=== PATIENT | female | born 1945 | race Caucasian/White ===

== ENCOUNTER 2016-09-03 19:04 | Emergency (ER) | payer MEDICARE ==
[~2016-09-03 19:04] MED LIST: ALBUTEROL2.5 MG/3 M IH; ATROVENT I0.2 MG/1 M IH; GUAIFENESIN AND5 ML PO; LEVOTHYROXINE; PAROXETINE20 MG PO; PEPCID40 M1 PO; PREDNISONE20 M1 PO; PROAIR RESPICL90 MCG IH; SYMBICORT1 AE3 IH; THEODUR 300MG PO; VIBRAMYCIN100 MG PO
== END 2016-09-03 20:22 | disposition home or self-care (01) ==
LOC: ED 19:04
DX: M77.9 Enthesopathy, unspecified (principal); M79.672 Pain in left foot
CPT/HCPCS: J1885

== ENCOUNTER → 2016-12-05 | Outpatient (CLI) | payer MEDICARE ==
[2016-09-03 20:22] VITALS: BP 145/87
== END ==
LOC: RAD 11-23 08:08
DX: M25.511 Pain in right shoulder (principal); M75.81 Other shoulder lesions, right shoulder

== ENCOUNTER → 2019-03-05 | Outpatient (CLI) | payer MEDICARE ==
[2016-09-03 20:22] VITALS: BP 145/87
== END ==
LOC: MAMMO 10:45
DX: Z12.31 Encounter for screening mammogram for malignant neoplasm of breast (principal)

== ENCOUNTER → 2019-10-09 | Outpatient (CLI) | payer MEDICARE ==
[2016-09-03 20:22] VITALS: BP 145/87
== END ==
LOC: RAD 10-03 13:00
DX: G31.9 Degenerative disease of nervous system, unspecified (principal)
CPT/HCPCS: A9585

== ENCOUNTER → 2019-10-17 | Outpatient (CLI) | payer MEDICARE ==
[2016-09-03 20:22] VITALS: BP 145/87
== END ==
LOC: RAD 12:51
DX: I65.29 Occlusion and stenosis of unspecified carotid artery (principal); I67.82 Cerebral ischemia

== ENCOUNTER 2019-10-23 18:25 | Emergency (ER) | payer MEDICARE ==
[~2019-10-23] VITALS: Ht 154.9 cm; Wt 64.1 kg
[~2019-10-23 18:25] MED LIST changes: -LEVOTHYROXINE; +SYNTHROID0.05 MG PO
[2019-10-23] MEDS ORDERED: THEOPHYLLINE400 M1 PO (19:24)
[2019-10-23] MEDS ORDERED: ZOLOFT 50MG50 MG PO (19:25)
[2019-10-23 20:31] LABS: EOS # 0.1 (0.04-0.40); HEMATOCRIT 43.1 % (37.0-47.0); HEMOGLOBIN 14.1 g/dL (12.5-16.0); LYMPH# 1.3 (1.50-4.00); MEAN CELL VOLUME 95 fl (78-100); MEAN CORPUSCULAR HEMOGLOBIN 31 pg (27-31); MEAN CORPUSCULAR HGB CONC 33 g/dL (33-37); MEAN PLATELET VOLUME 8.9 fl (7.4-10.4); MONO # 0.6 (0.20-0.80); NEU # 5.1 (1.40-6.50); PLATELET COUNT 194 K/mm3 (130-400); RED BLOOD COUNT 4.56 M/mm3 (4.10-5.30); RED CELL DISTRIBUTION WIDTH 13.8 % (11.5-14.5); WHITE BLOOD COUNT 7.2 K/mm3 (4.8-10.8)
[2019-10-23 20:35] LABS: PH-URINE 7.5 (5.0 - 8.0); URINE APPEARANCE CLEAR; URINE BILIRUBIN NEGATIVE (NEGATIVE); URINE BLOOD TRACE (NEGATIVE); URINE COLOR YELLOW; URINE GLUCOSE NEGATIVE (NEGATIVE); URINE KETONE NEGATIVE (NEGATIVE); URINE LEUKOCYTE ESTERASE NEGATIVE (NEGATIVE); URINE NITRATE NEGATIVE (NEGATIVE); URINE PROTEIN(semi-quant) TRACE mg/dL (NEGATIVE); URINE UROBILINOGEN NORMAL (NORMAL)
[2019-10-23 20:38] LABS: ALBUMIN 4.2 g/dL (3.4-4.8); POTASSIUM 3.9 mmol/L (3.5-5.1)
[2019-10-23 20:40] LABS: TOTAL PROTEIN 6.8 g/dL (6.2-8.1)
[2019-10-23 20:42] LABS: TOTAL BILIRUBIN 0.5 mg/dL (0.2-1.2)
[2019-10-23 23:47] VITALS: BP 148/86
== END 2019-10-23 23:47 | disposition short-term general hospital (02) ==
LOC: ED 18:25
PROVIDERS: Family Medicine
DX: K56.609 Unspecified intestinal obstruction, unspecified as to partial versus complete obstruction (principal); J44.9 Chronic obstructive pulmonary disease, unspecified; E03.9 Hypothyroidism, unspecified; F17.210 Nicotine dependence, cigarettes, uncomplicated
CPT/HCPCS: J3010; Q9967

== ENCOUNTER 2019-11-13 23:04 | Emergency (ER) | payer MEDICARE ==
[~2019-11-13 23:04] MED LIST changes: +THEOPHYLLINE400 M1 PO; +ZOLOFT 50MG50 MG PO
[2019-11-13] MEDS ORDERED: ALBUTEROL2.5 MG/3 M IH (23:57)
[2019-11-13] MEDS ORDERED: ZYRTEC ALLERGY10 MG PO (23:57)
[2019-11-13] MEDS ORDERED: FUROSEMIDE20 MG PO (23:58)
[2019-11-13] MEDS ORDERED: OXYCODONE5 M1 PO (23:58)
[2019-11-14 00:35] LABS: HEMATOCRIT 36.9 % (37.0-47.0); HEMOGLOBIN 12.7 g/dL (12.5-16.0); MEAN CELL VOLUME 89 fl (78-100); MEAN CORPUSCULAR HEMOGLOBIN 31 pg (27-31); MEAN CORPUSCULAR HGB CONC 34 g/dL (33-37); MEAN PLATELET VOLUME 10.1 fl (7.4-10.4); PLATELET COUNT 263 K/mm3 (130-400); RED BLOOD COUNT 4.15 M/mm3 (4.10-5.30); RED CELL DISTRIBUTION WIDTH 13.4 % (11.5-14.5); WHITE BLOOD COUNT 7.9 K/mm3 (4.8-10.8)
[2019-11-14 00:37] LABS: POTASSIUM 4.3 mmol/L (3.5-5.1)
[2019-11-14 00:41] LABS: TOTAL BILIRUBIN 0.4 mg/dL (0.2-1.2)
[2019-11-14 00:47] LABS: PROTHROMBIN TIME 9.2 SECONDS (9.0-12.0)
[2019-11-14 00:53] LABS: LYMPHOCYTE 14 % (20-51); MONOCYTE 11 % (3-10); NEUTROPHILS 74 % (42-75)
[2019-11-14 02:30] VITALS: BP 101/59
== END 2019-11-14 02:30 | disposition home or self-care (01) ==
LOC: ED 23:04
PROVIDERS: Physician Assistant
DX: R10.9 Unspecified abdominal pain (principal); J44.9 Chronic obstructive pulmonary disease, unspecified; E03.9 Hypothyroidism, unspecified; F17.210 Nicotine dependence, cigarettes, uncomplicated
CPT/HCPCS: J2270; Q9967

== ENCOUNTER 2020-06-22 21:14 | Observation (INO) | payer MEDICARE ==
[~2020-06-22] VITALS: Ht 152.4 cm; Wt 65.3 kg
[~2020-06-22 21:14] MED LIST changes: +FUROSEMIDE20 MG PO; +OXYCODONE5 M1 PO; +ZYRTEC ALLERGY10 MG PO
[2020-06-22] MEDS ORDERED: PREDNISONE10 MG PO (21:27)
[2020-06-22 22:13] LABS: EOS # 0.1 (0.04-0.40); EOS % 1.4 % (1.0-5.0); HEMATOCRIT 40.1 % (37.0-47.0); HEMOGLOBIN 12.8 g/dL (12.5-16.0); LYMPH# 1.5 (1.50-4.00); MEAN CELL VOLUME 93 fl (78-100); MEAN CORPUSCULAR HEMOGLOBIN 30 pg (27-31); MEAN CORPUSCULAR HGB CONC 32 g/dL (33-37); MEAN PLATELET VOLUME 9.1 fl (7.4-10.4); MONO # 0.8 (0.20-0.80); NEU # 7.6 (1.40-6.50); PLATELET COUNT 228 K/mm3 (130-400); RED BLOOD COUNT 4.31 M/mm3 (4.10-5.30); RED CELL DISTRIBUTION WIDTH 14.4 % (11.5-14.5)
[2020-06-22 22:26] LABS: ALBUMIN 4.2 g/dL (3.4-4.8); POTASSIUM 4.4 mmol/L (3.5-5.1)
[2020-06-22 22:27] LABS: CALCIUM 9.5 mg/dL (8.3-10.5)
[2020-06-22 22:29] LABS: TOTAL PROTEIN 7.1 g/dL (6.2-8.1)
[2020-06-22 22:30] LABS: TOTAL BILIRUBIN 0.3 mg/dL (0.2-1.2)
[2020-06-22 23:13] VITALS: BP 139/77
[2020-06-22 23:24] VITALS: BP 139/77
[2020-06-23 02:28] VITALS: BP 129/70
[2020-06-23 05:34] VITALS: BP 146/80
[2020-06-23 09:31] VITALS: BP 122/75
[2020-06-23 13:24] VITALS: BP 113/70
[2020-06-23 17:16] VITALS: BP 113/70
[2020-06-23 21:11] VITALS: BP 107/65
[2020-06-24 01:49] VITALS: BP 118/71
[2020-06-24 06:19] VITALS: BP 139/67
[2020-06-24 06:31] LABS: HEMATOCRIT 36.9 % (37.0-47.0); HEMOGLOBIN 11.9 g/dL (12.5-16.0); MEAN CELL VOLUME 92 fl (78-100); MEAN CORPUSCULAR HEMOGLOBIN 30 pg (27-31); MEAN CORPUSCULAR HGB CONC 32 g/dL (33-37); MEAN PLATELET VOLUME 9.2 fl (7.4-10.4); PLATELET COUNT 240 K/mm3 (130-400); RED BLOOD COUNT 4.01 M/mm3 (4.10-5.30); RED CELL DISTRIBUTION WIDTH 14.3 % (11.5-14.5)
[2020-06-24 06:35] LABS: WHITE BLOOD COUNT 21.1 K/mm3 (4.8-10.8)
[2020-06-24 06:38] LABS: POTASSIUM 4.3 mmol/L (3.5-5.1)
[2020-06-24 06:39] LABS: CALCIUM 9.2 mg/dL (8.3-10.5)
[2020-06-24 06:42] LABS: LYMPHOCYTE 1 % (20-51); MONOCYTE 5 % (3-10); NEUTROPHILS 94 % (42-75)
[2020-06-24] MEDS ORDERED: DOXYCYCLINE MO100 M3 PO (08:36)
[2020-06-24] MEDS ORDERED: PREDNISONE20 M1 PO (08:38)
== END 2020-06-24 10:35 | disposition home or self-care (01) ==
LOC: ED 21:14 → MED/SURG 22:50
PROVIDERS: Nurse Practitioner Family; ADMIT Nurse Practitioner Primary Care
DX: J44.1 Chronic obstructive pulmonary disease with (acute) exacerbation (principal); I25.2 Old myocardial infarction; E03.9 Hypothyroidism, unspecified; K21.9 Gastro-esophageal reflux disease without esophagitis; F32.9 Major depressive disorder, single episode, unspecified; Z90.710 Acquired absence of both cervix and uterus; Z90.49 Acquired absence of other specified parts of digestive tract; F17.210 Nicotine dependence, cigarettes, uncomplicated; Z88.0 Allergy status to penicillin; Z20.828 Contact with and (suspected) exposure to other viral communicable diseases; Z86.73 Personal history of transient ischemic attack (TIA), and cerebral infarction without residual deficits; Z88.2 Allergy status to sulfonamides; Z88.1 Allergy status to other antibiotic agents
CPT/HCPCS: G0378; J1650; J2930